=== PATIENT | female | born 1955 | race Caucasian/White ===

== ENCOUNTER → 2019-11-18 14:05 | Outpatient (BNVA) | payer MEDICARE, OTHER, SELFPAY | PROVIDERS: Family Provider Nurse Practitioner; Visit Provider Nurse Practitioner Family | DX: R53.83 Other fatigue (principal); E03.9 Hypothyroidism, unspecified; E78.2 Mixed hyperlipidemia; Z79.899 Other long term (current) drug therapy; E55.9 Vitamin D deficiency, unspecified | CPT/HCPCS: 80053; 80061; 81001; 82306; 83036; 84443; 85025 ==

== ENCOUNTER → 2019-11-23 09:46 | Outpatient (BNVA) | payer MEDICARE, OTHER, SELFPAY | PROVIDERS: Family Provider Nurse Practitioner; Visit Provider Nurse Practitioner Family | DX: R31.9 Hematuria, unspecified (principal) | CPT/HCPCS: 81001 ==

== ENCOUNTER → 2020-05-01 09:36 | Outpatient (BNVA) | payer MEDICARE, OTHER, SELFPAY | PROVIDERS: Family Provider Nurse Practitioner; Visit Provider Nurse Practitioner Family | DX: E03.9 Hypothyroidism, unspecified (principal); R31.9 Hematuria, unspecified; Z79.899 Other long term (current) drug therapy; Z12.31 Encounter for screening mammogram for malignant neoplasm of breast | CPT/HCPCS: 80053; 81003; 83036; 84443; 85025; 88112 ==

== ENCOUNTER 2020-05-23 10:21 | Outpatient (CLI) | payer MEDICARE, OTHER, SELFPAY ==
--- NOTE | 2020-05-23 11:00 | MM_ITS ---
WS: [id number] Bilateral screening digital mammogram, 05/23/2020 Clinical Data: breast cancer screening Comparison: 04/08/2019, 04/07/2018, 02/27/2017, 02/21/2016, 01/27/2015, 01/26/2014, 01/01/2013, 12/02/2011, , 11/15/2009, 11/18/2008, 11/10/2007, 10/17/2006. Findings: The breast parenchymal pattern shows fat replacement. No spiculated masses or clustered calcification s are seen. There are no secondary signs of carcinoma. MM/[place] [id number] Impression: 1. Negative bilateral mammogram unchanged. 2. Recommend annual screening mammograms. BIRADS: 1-Negative FOLLOW UP: 1 Year Follow-up The CAD box car checker was used.
== END 2020-05-23 10:22 | disposition home or self-care (01) ==
LOC: RADSHAW 10:27
PROVIDERS: PCP Nurse Practitioner Family; Visit Provider Nurse Practitioner Family
DX: Z12.31 Encounter for screening mammogram for malignant neoplasm of breast (principal)
CPT/HCPCS: 77067

== ENCOUNTER → 2020-11-03 10:58 | Outpatient (BNVA) | payer MEDICARE, OTHER, SELFPAY | PROVIDERS: PCP Nurse Practitioner Family; Visit Provider Nurse Practitioner Family | DX: E03.9 Hypothyroidism, unspecified (principal); I10 Essential (primary) hypertension; J30.89 Other allergic rhinitis; E55.9 Vitamin D deficiency, unspecified; Z13.6 Encounter for screening for cardiovascular disorders; Z79.899 Other long term (current) drug therapy | CPT/HCPCS: 80061; 83036; 84443 ==

== ENCOUNTER → 2021-02-05 10:19 | Outpatient (BNVA) | payer MEDICARE, OTHER, SELFPAY | PROVIDERS: PCP Nurse Practitioner Family; Visit Provider Nurse Practitioner Family | DX: J06.9 Acute upper respiratory infection, unspecified (principal); Z20.822 Contact with and (suspected) exposure to COVID-19 | CPT/HCPCS: 87635 ==

== ENCOUNTER → 2021-05-09 09:38 | Outpatient (BNVA) | payer MEDICARE, OTHER, SELFPAY | PROVIDERS: PCP Nurse Practitioner Family; Visit Provider Nurse Practitioner Family | DX: E55.9 Vitamin D deficiency, unspecified (principal); I10 Essential (primary) hypertension; E03.9 Hypothyroidism, unspecified; Z13.6 Encounter for screening for cardiovascular disorders; Z79.899 Other long term (current) drug therapy | CPT/HCPCS: 80053; 80061; 81003; 82306; 83036; 84443; 85025 ==

== ENCOUNTER 2021-07-23 09:02 | Outpatient (CLI) | payer MEDICARE, OTHER, SELFPAY ==
--- NOTE | 2021-07-23 10:00 | MM_ITS ---
WS: [id number] BILATERAL SCREENING DIGITAL MAMMOGRAM WITH CAD HISTORY: Z12.31 - Encounter for screening mammogram for malignancy. COMPARISON: 05/23/2020, 04/08/2019 Bilateral CC and MLO views submitted. Computer aided detection analyzed. Breast composition: There are scattered areas of fibroglandular density. No suspicious masses, microc alcifications or architectural distortion. Benign arterial calcifications and a few scattered benign round calcifications. MM/[place] [id number] IMPRESSION: BI-RADS: 2-Benign FOLLOW UP: 1 Year Follow-up
== END 2021-07-23 09:03 | disposition home or self-care (01) ==
LOC: RADSHAW 09:08
PROVIDERS: PCP Nurse Practitioner Family; Visit Provider Nurse Practitioner Family
DX: Z12.31 Encounter for screening mammogram for malignant neoplasm of breast (principal)
CPT/HCPCS: 77067

== ENCOUNTER → 2022-04-29 08:42 | Outpatient (BNVA) | payer MEDICARE, OTHER, SELFPAY | PROVIDERS: Visit Provider Nurse Practitioner | DX: E07.9 Disorder of thyroid, unspecified (principal) | CPT/HCPCS: 84443 ==

== ENCOUNTER 2022-07-31 09:54 | Outpatient (CLI) | payer MEDICARE, OTHER, SELFPAY ==
--- NOTE | 2022-07-31 10:06 | MM_ITS ---
WS: [id number] BILATERAL SCREENING DIGITAL TOMOSYNTHESIS MAMMOGRAM WITH CAD HISTORY: SCREENING COMPARISON: 07/23/2021 and 05/23/2020 Bilateral CC and MLO views with tomosynthesis and synthetic mammography submitted. Computer aided det ection analyzed. Breast composition: There are scattered areas of fibroglandular density. No suspicious masses, microc alcifications or architectural distortion. Bilateral breast arterial calcifications. MM/[place] [id number] IMPRESSION: BI-RADS: 2-Benign FOLLOW UP: 1 Year Follow-up
== END 2022-07-31 09:55 | disposition home or self-care (01) ==
LOC: RAD 09:57
PROVIDERS: Visit Provider Nurse Practitioner
DX: Z12.31 Encounter for screening mammogram for malignant neoplasm of breast (principal)
CPT/HCPCS: 77063; 77067

== ENCOUNTER 2022-09-14 10:23 | Emergency (ER) | payer MEDICARE, OTHER, SELFPAY ==
[2022-09-14 10:26] VITALS: BP 132/87; PULSE 87; RESP 16; TEMP 36.7; O2SAT 98
--- NOTE | 2022-09-14 10:44 | W.ED.DENTAL ---
HPI - Dental/Oral General: Chief complaint: Dental/Oral Stated complaint: tooth ache Time Seen by Provider: 09/14/22 10:32 History of Present Illness: Ms. Bonilla is a 67-year-old lady presenting to the emergency department for evaluation of dental infection. She reports onset of symptoms 3 days ago with left-sided lower jaw aching and pain. Symptoms have progressed and now involves pain with palpation and some swelling on the left side of the neck. Limited range of motion of the jaw secondary to pain. Improved with Tylenol. Intensity symptoms is moderate. She was seen at urgent care and sent here for evaluation of deep space infection Onset (ago): day(s) Duration: worsening Severity: moderate Relieving factors: other Exacerbating factors: chewing and swallowing Context: history of dental caries and poor dental care Associated symptoms: Reports fever(s) and odynophagia Review of Systems General: Reports: 10 or more systems reviewed and unremarkable except in HPI and below Const: Reports: fever(s) ENMT: Reports: odynophagia PFSH ED PFSH: Medical History Acquired hypothyroidism Breast cancer screening by mammogram Encounter for medication management Environmental and seasonal allergies Essential hypertension Hematuria Hypertension screen Vitamin D deficiency Surgical History H/O colonoscopy Normal colonoscopy 2017, repeat in 5 yeart (2022) H/O colonoscopy with polypectomy Status post cervical spinal fusion Family History Other Arthritis Cancer Stroke Social History Smoking and tobacco status: never smoked Alcohol intake: never Physical Exam Const: COMMON NORMALS: alert GENERAL APPEARANCE: cooperative and well developed HENMT: COMMON NORMALS: normocephalic and atraumatic HEAD & SCALP: normocephalic and atraumatic THROAT: posterior oropharynx normal OTHER: Limited evaluation secondary to moderate trismus, overall poor dentition with multiple dental caries and missing teeth, no discrete abscess in the left molar mandibular region. There is external tenderness to palpation and tenderness with mild induration down the lateral neck. Uvula appears midline. Eye: COMMON NORMALS: conjunctivae normal CONJUNCTIVA: Yes conjunctivae normal SCLERA: sclerae normal Neck/C-Spine: COMMON NORMALS: supple GENERAL: Yes trachea midline Resp: COMMON NORMALS: clear to auscultation bilaterally EFFORT & INSPECTION: Yes able to speak in complete sentences AUSCULTATION: clear to auscultation bilaterally Cardio: COMMON NORMALS: regular rate and regular rhythm RATE: regular rate RHYTHM: regular rhythm GI: COMMON NORMALS: Soft to palpation PALPATION: Yes Soft to palpation and No Tenderness to palpation present (GI) Extremity: GENERAL: Yes normal exam except as noted and No edema Neuro: COMMON NORMALS: moves all extremities SENSORIUM/ORIENTATION: Yes alert and No Orientation impaired Psych: COMMON NORMALS: mental status grossly normal and Normal thought process present THOUGHT PROCESS: Normal thought process present Course Vital Signs: Vital signs: Vital Signs Temperature 98.0 F 09/14/22 10:26 Pulse Rate 73 09/14/22 13:36 Respiratory Rate 16 09/14/22 10:26 Blood Pressure 160/99 09/14/22 13:36 Pulse Oximetry 98 09/14/22 13:36 Oxygen Delivery Me thod 09/14/22 10:26 [facility] [place] - Dental/Oral Medical Decision Making 67-year-old lady presenting with concern over dental infection with trismus and concern for evaluation of deep tissue infection from urgent care. Exam as above. Patient is nontoxic. Labs notable for leukocytosis and hemoconcentration compared prior which is similar. Metabolic panel without acute derangement. Imaging notable for likely submandibular gland sialadenitis. Incidental findings including need for follow-up and repeat imaging to evaluate for other causes of masslike density. Additionally need for dental/OMFS follow-up for osteomyelitis and poor dentition discussed with the patient. Patient improved on reassessment. She will be treated in the outpatient setting with analgesia and antibiotics. Strict return precautions discussed. The results of ED evaluation were discussed with the patient including prescriptions and/or symptomatic cares (if applicable) including appropriate and responsible use, followup plan, and return precautions. The patient verbalized understanding and felt safe for discharge. Medical Records I reviewed the patient's medical records. Lab Data I reviewed the patient's lab results. 09/14/22 10:55 09/14/22 10:[address] 09/14/22 10:51 IMPRESSION: 1. Findings as stated above are consistent with osteomyelitis involving the root of the posterior-most left mandibular molar with adjacent soft tissue infection. 2. There is heterogeneous soft tissue density along the left side of the tongue which cannot be differentiated from the adjacent left submandibular gland. Multiple small low-density peripherally enhancing foci in this soft tissue collection raise concern for small developing abscess formations. The soft tissue density may represent enlarged lymph nodes. Follow-up to exclude neoplasm upon resolution of the patient's symptoms. Neck CT 09/14/22 10:51 IMPRESSION: 1. Findings as stated above are consistent with left submandibular gland sialadenitis. Adjacent heterogeneous soft tissue density may represent enlarged lymph nodes. Follow-up to exclude neoplasm upon resolution of the patient's symptoms. 2. There is lucency surrounding the root of the posterior-most left mandibular molar extending to the cortical surfaces with adjacent hazy stranding consistent with infection/osteomyelitis. Dental consult recommended. ADDENDUM: 09/14/22 1304 CRITICAL RESULT: The study was personally discussed on the telephone with Brad Awad on 09/14/2022 1:03 PM CONSTRUCTION RECRUITER. The results were understood and acknowledged. Laboratory Results WBC 12.3 10^3/uL (4.0-10.0) H 09/14/22 10:55 RBC 5.43 10^6/uL (4.1-5.3) H 09/14/22 10:55 Hgb 16.2 g/dL (11.5-15.3) H 09/14/22 10:55 Hct 50.2 % (37.0-47.0) H 09/14/22 10:55 MCV 92.4 fl (81-99) 09/14/22 10:55 MCH 29.8 pg (28.0-34.0) 09/14/22 10:55 MCHC 32.3 g/dL (30.0-36.0) 09/14/22 10:55 RDW 14.0 % (12.1-15.1) 09/14/22 10:55 Plt Count 229 10^3/cmm (130-400) 09/14/22 10:55 MPV 10.8 fL (7.4-10.4) H 09/14/22 10:55 Neut % (Auto) 70.2 % 09/14/22 10:55 Lymph % (Auto) 21.2 % 09/14/22 10:55 Thomas % (Auto) 7.3 % 09/14/22 10:55 Eos % (Auto) 0.5 % 09/14/22 10:55 Baso % (Auto) 0.5 % 09/14/22 10:55 Neut # (Auto) 8.66 10^3/uL (1.8-7.7) H 09/14/22 10:55 Lymph # (Auto) 2.6 10^3/uL (0.8-4.8) 09/14/22 10:55 Thomas # (Auto) 0.9 10^3/uL (0.2-0.9) 09/14/22 10:55 Eos # (Auto) 0.1 10^3/uL (0.0-0.8) 09/14/22 10:55 Baso # (Auto) 0.1 10^3/uL (0.0-0.1) 09/14/22 10:55 Nucleated RBC % (auto) 0 % 09/14/22 10:55 Nucleated RBCs # 0.0 /100WBC 09/14/22 10:55 Sodium 136 mmol/L (136-145) 09/14/22 10:55 Potassium 4.0 mmol/L (3.5-5.1) 09/14/22 10:55 Chloride 101 mmol/L (98-107) 09/14/22 10:55 Carbon Dioxide 25 mmol/L (22-29) 09/14/22 10:55 Anion Gap 14.0 (5-19) 09/14/22 10:55 BUN 12 mg/dL (8-23) 09/14/22 10:55 Creatinine 0.8 mg/dL (0.5-0.9) 09/14/22 10:55 GFR Calculation 71.1 mL/min (90-130) L 09/14/22 10:55 Glucose 101 mg/dL (65-115) 09/14/22 10:55 Calculated Osmolality 282 mOsm/kg (285-295) L 09/14/22 10:55 Lactate 1.1 mmol/L (0.5-2.2) 09/14/22 10:55 Calcium 9.7 mg/dL (8.5-10.5) 09/14/22 10:55 Total Bilirubin 0.4 mg/dL (0.15-1.2) 09/14/22 10:55 AST 14 U/L (0-32) 09/14/22 10:55 ALT 12 U/L (0-33) 09/14/22 10:55 Alkaline Phosphatase 80 U/L (35-105) 09/14/22 10:55 Total Protein 8.1 g/dL (6.6-8.7) 09/14/22 10:55 Albumin 4.1 g/dL (3.5-5.2) 09/14/22 10:55 Globulin 4.0 g/dL (1.3-4.6) 09/14/22 10:55 Group A Strep Rapid Negative (Negative) 09/14/22 12:14 Discharge Plan Discharge Patient Disposition: Home Clinical Impression: Infected dental caries, Sialadenitis Condition: Stable Prescriptions: New amoxicillin-pot clavulanate 875-125 mg tablet 1 tab PO BID Qty: 20 0RF oxycodone 5 mg tablet 5 mg PO Q4H PRN (Reason: pain) Qty: 10 0RF No Action Tylenol Extra Strength 500 mg Capsule 1,000 mg PO Q6H PRN (Reason: Pain) Zyrtec 10 mg Capsule 10 mg PO DAILY PRN (Reason: Allergy Symptoms) Euthyrox 100 mcg tablet 100 mcg PO DAILY Discharge Orders: Discharge ED (Routine); Ordered 09/14/22 Ordered By: Brad Elliott Referrals: Melida Metzger FNP [Primary Care Provider] - Discharge Diet: Usual diet Discharge Activity: Increase activity as tolerated Patient Instructions: Dental Caries (Cavities), Sialoadenitis (ED), Opioid Safety Activity Restrictions/Additional Instructions: Thank you for visiting the emergency department. You were seen and evaluated for facial pain and swelling. The most likely cause of your symptoms is dental infection with osteomyelitis as well as sialoadenitis. I will prescribe oxycodone, use this cautiously as it is an opioid. You may use [id number] medications such as acetaminophen and ibuprofen for pain however please do not exceed the daily recommended dosage as listed on the packaging and please keep in mind that many namebrand medications contain the same active ingredients. Please avoid these medications if previously instructed to do so by another physician due to other underlying medical condition. I will also prescribe antibiotics. As discussed given the degree of inflammation and abnormal appearance on CT imaging they recommend repeat imaging to ensure normal appearance and complete resolution of findings to ensure that they do not represent underlying mass lesion or tumor. Please follow-up with a dentist. Also follow-up with OMFS. Return to the emergency department for uncontrolled symptoms or anything else that you are concerned about and feel needs emergency department evaluation. Coding Level of Care Code ED Human Resources Executive Assistant for Amadou Pham
--- NOTE | 2022-09-14 10:51 | CTR_ITS ---
PROCEDURE INFORMATION: Exam: CT Maxillofacial With Contrast Exam date and time: 09/14/2022 11:31 AM Age: 67 years old Clinical indication: Face pain; Additional info: Trismus, L face pain, eval deep infection TECHNIQUE: Imaging protocol: Computed tomography of the face with contrast. Radiation optimization: All CT scans at this facility use at least one of these dose optimization techniques: automated exposure control; mA and/or kV adjustment per patient size (includes targeted exams where dose is matched to clinical indication); or iterative reconstruction. Contrast material: OMNI 350; Contrast volume: 50 ml; Contrast route: INTRAVENOUS (IV); REPORTING DATA: Count of CT and Cardiac NM exams in prior 12 months: This patient has received [address] and 0 known cardiac nuclear medicine studies in the 12 months prior to the current study. COMPARISON: No relevant prior studies available. RADIATION DOSE METRICS: Total DLP (mGy-cm): 482.2 FINDINGS: Orbital cavities: Orbits are normal. Globes are unremarkable. Bones/joints: No acute fracture. Paranasal sinuses: Normal. No air-fluid levels. Salivary glands: Left submandibular gland is enlarged and heterogeneously enhances. There is stranding in the adjacent fat planes. Soft tissues: There is somewhat ill-defined heterogeneously enhancing soft tissue density along the left side of the tongue which cannot be differentiated from the adjacent enlarged left submandibular gland. This measures 2.9 x 2.9 cm in AP/craniocaudad dimensions and contains multiple peripherally enhancing small low-density collections. Dental: There is lucency surrounding the root of the posterior most left mandibular molar extending to the cortical surfaces with adjacent soft tissue stranding consistent osteomyelitis with adjacent soft tissue infection. CT/CT facial bones w con [id number] IMPRESSION: 1. Findings as stated above are consistent with osteomyelitis involving the root of the posterior-most left mandibular molar with adjacent soft tissue infection. 2. There is heterogeneous soft tissue density along the left side of the tongue which cannot be differentiated from the adjacent left submandibular gland. Multiple small low-density peripherally enhancing foci in this soft tissue collection raise concern for small developing abscess formations. The soft tissue density may represent enlarged lymph nodes. Follow-up to exclude neoplasm upon resolution of the patient's symptoms.
--- NOTE | 2022-09-14 10:51 | CTR_ITS ---
PROCEDURE INFORMATION: Exam: CT Neck With Contrast Exam date and time: 09/14/2022 11:31 AM Age: 67 years old Clinical indication: Neck pain and other: Left face/neck; Additional info: Trismus, L face pain, eval deep infection TECHNIQUE: Imaging protocol: Computed tomography of the neck with contrast. Radiation optimization: All CT scans at this facility use at least one of these dose optimization techniques: automated exposure control; mA and/or kV adjustment per patient size (includes targeted exams where dose is matched to clinical indication); or iterative reconstruction. Contrast material: OMNI 350; Contrast volume: 50 ml; Contrast route: INTRAVENOUS (IV); REPORTING DATA: Count of CT and Cardiac NM exams in prior 12 months: This patient has received [address] and 0 known cardiac nuclear medicine studies in the 12 months prior to the current study. COMPARISON: No relevant prior studies available. RADIATION DOSE METRICS: Total DLP (mGy-cm): 217.5 FINDINGS: Dental: Lucency surrounds the root of the posterior most left mandibular molar tooth measuring up to 3.2 mm. The lucency extends to the cortical surfaces at the anterior and posterior aspects of the mandible associated with hazy stranding along the posterior surface of the mandible. Pharynx: Unremarkable. No significant tonsillar enlargement. Larynx: Unremarkable. Epiglottis is normal. Prevertebral and retropharyngeal spaces: Unremarkable. Salivary glands: Left submandibular gland is mildly enlarged in relation to the right and heterogeneously enhancing. There is mild hazy stranding in the fat surrounding the left submandibular gland. Thyroid: Thyroid gland is heterogeneous. There are some ill-defined low-density lesions in the thyroid the larger of which measures 11 mm in the left thyroid lobe. Lymph nodes: There is ill-defined heterogeneous soft tissue along the left side of the tongue density measuring 2.6 x 2.6 cm in the craniocaudad/AP dimensions which cannot be differentiated from the superior surface of the adjacent left submandibular gland. These densities likely represent enlarged lymph nodes. Trachea: Visualized trachea is unremarkable. Lungs: There are emphysematous changes at the lung apices. Bones/joints: There are degenerative and postoperative changes in the cervical spine. Soft tissues: See above. CT/CT neck w con* [id number] IMPRESSION: 1. Findings as stated above are consistent with left submandibular gland sialadenitis. Adjacent heterogeneous soft tissue density may represent enlarged lymph nodes. Follow-up to exclude neoplasm upon resolution of the patient's symptoms. 2. There is lucency surrounding the root of the posterior-most left mandibular molar extending to the cortical surfaces with adjacent hazy stranding consistent with infection/osteomyelitis. Dental consult recommended.
[2022-09-14 11:10] LABS: Basophils # 0.1 10^3/uL (0.0-0.1); Basophils % 0.5 %; Eosinophils # 0.1 10^3/uL (0.0-0.8); Eosinophils % 0.5 %; Hematocrit 50.2 % (37.0-47.0); Hemoglobin 16.2 g/dL (11.5-15.3); Lymphocytes # 2.6 10^3/uL (0.8-4.8); Lymphocytes % 21.2 %; Mean Corpuscular HGB Conc 32.3 g/dL (30.0-36.0); Mean Corpuscular Hemoglobin 29.8 pg (28.0-34.0); Mean Corpuscular Volume 92.4 fl (81-99); Mean Platelet Volume 10.8 fL (7.4-10.4); Monocytes # 0.9 10^3/uL (0.2-0.9); Monocytes % 7.3 %; Neutrophils # 8.66 10^3/uL (1.8-7.7); Neutrophils % 70.2 %; Nucleated Red Blood Cells % 0 %; Platelet Count 229 10^3/cmm (130-400); Red Blood Count 5.43 10^6/uL (4.1-5.3); White Blood Count 12.3 10^3/uL (4.0-10.0)
[2022-09-14 11:23] LABS: Alanine Aminotransferase 12 U/L (0-33); Albumin Level 4.1 g/dL (3.5-5.2); Alkaline Phosphatase 80 U/L (35-105); Aspartate Amino Transferase 14 U/L (0-32); Blood Urea Nitrogen 12 mg/dL (8-23); Calcium 9.7 mg/dL (8.5-10.5); Carbon Dioxide 25 mmol/L (22-29); Chloride 101 mmol/L (98-107); Glomerular Filtration Rate 71.1 mL/min (90-130); Glucose 101 mg/dL (65-115); Lactate (Lactic Acid level) 1.1 mmol/L (0.5-2.2); Osmolality Calculated 282 mOsm/kg (285-295); Sodium 136 mmol/L (136-145); Total Bilirubin 0.4 mg/dL (0.15-1.2); Total Protein 8.1 g/dL (6.6-8.7)
[2022-09-14] MEDS: iohexol 350 mg/mL 500 mL Btl (per mL) IV ×2 (11:45→11:46)
[2022-09-14 13:14] LABS: Rapid Strep A Test Negative (Negative)
[2022-09-14 13:36] VITALS: BP 160/99; PULSE 73; O2SAT 98
== END 2022-09-14 13:37 | disposition home or self-care (01) ==
PROVIDERS: Emergency Provider Emergency Medicine; PCP Nurse Practitioner
DX: K11.20 Sialoadenitis, unspecified (principal); K02.9 Dental caries, unspecified
CPT/HCPCS: 70487; 70491; 80053; 83605; 85025; 87081; 87880; 99285; Q9967

== ENCOUNTER → 2022-10-02 09:34 | Outpatient (BNVA) | payer MEDICARE, OTHER, SELFPAY | PROVIDERS: PCP Nurse Practitioner; Visit Provider Nurse Practitioner | DX: I10 Essential (primary) hypertension (principal); E03.9 Hypothyroidism, unspecified; Z79.899 Other long term (current) drug therapy | CPT/HCPCS: 80053; 80061; 82306; 84443; 85025 ==

== ENCOUNTER → 2022-10-03 10:37 | Outpatient (BNVA) | payer MEDICARE, OTHER, SELFPAY | PROVIDERS: PCP Nurse Practitioner; Visit Provider Nurse Practitioner | DX: E87.5 Hyperkalemia (principal) | CPT/HCPCS: 84132 ==

== ENCOUNTER 2022-11-27 12:41 | Outpatient (CLI) | payer MEDICARE, OTHER, SELFPAY ==
--- NOTE | 2022-11-27 13:00 | CT_ITS ---
WS: [id number] CT NECK WITH CONTRAST HISTORY: R59.9 - Enlarged lymph nodes, unspecified TECHNIQUE: Contiguous 5 mm axial images are performed through the neck with intravenous contrast. Sag ittal and coronal reformats are also submitted. All CT scans at [facility] use at least one o f these dose optimization techniques: automated exposure control; mA and/or kV adjustment per patient size (includes targeted exams where dose is matched to clinical indication); or iterative reconstruc tion. CONTRAST: CONTRAST: Omnipaque 350; 100 mL IV. DLP: 123.98 mGy.cm COMPARISON: 09/14/2022 Nasopharynx, oropharynx, hypopharynx and larynx are unremarkable. No soft tissue masses or abnormal e nhancement. Torus tubarius and fossa of Rosenmuller and parapharyngeal fat are normal. Bilateral cervical chain lymph nodes are reidentified. Decrease in size and hyperemia of the LEFT cer vical chain lymph nodes. There is also less septations fat stranding. The largest lymph node measures 9 mm at level IIa. Normal enhancement of the thyroid gland. Submandibular and parotid glands are normally enhancing. No masses are identified within the glands. No parotid or submandibular duct stones. Prior anterior cervical fusion C5-C7. Visualized portions of the skull base demonstrate no abnormalities. Orbits and globes are within norm al limits. No soft tissue masses. Posterior LEFT molar has been removed. No persistent abscess at the tooth extraction site. Visualized paranasal sinuses and mastoid air cells are normal. Lung apices are clear. CT/CT neck w con* [id number] IMPRESSION: 1. Bilateral cervical chain lymph nodes have returned to normal. These are pro bably reactive from the dental abscess. 2. No submandibular gland or parotid gland mass. 3. Interval extraction of the posterior LEFT mandibular molar. No recurrent ab scess at the extraction site.
[2022-11-27 13:21] LABS: Blood Urea Nitrogen 17 mg/dL (8-23)
[2022-11-27] MEDS: iohexol 350 mg/mL 500 mL Btl (per mL) IV (13:30)
== END 2022-11-27 12:42 | disposition home or self-care (01) ==
PROVIDERS: PCP Nurse Practitioner; Visit Provider Nurse Practitioner
DX: R59.9 Enlarged lymph nodes, unspecified (principal); Z01.89 Encounter for other specified special examinations
CPT/HCPCS: 70491; 82565; 84520; Q9967

== ENCOUNTER → 2024-01-08 08:32 | Outpatient (BNVA) | payer MEDICARE, OTHER, SELFPAY | PROVIDERS: PCP Nurse Practitioner; Visit Provider Nurse Practitioner Family | DX: Z79.899 Other long term (current) drug therapy (principal); I10 Essential (primary) hypertension; E03.9 Hypothyroidism, unspecified; E55.9 Vitamin D deficiency, unspecified; Z13.6 Encounter for screening for cardiovascular disorders; Z98.890 Other specified postprocedural states; Z12.31 Encounter for screening mammogram for malignant neoplasm of breast; N90.89 Other specified noninflammatory disorders of vulva and perineum | CPT/HCPCS: 80053; 80061; 81003; 82306; 83036; 84443; 85025 ==

== ENCOUNTER 2024-01-14 09:54 | Outpatient (CLI) | payer MEDICARE, OTHER, SELFPAY ==
--- NOTE | 2024-01-14 10:00 | MM_ITS ---
WS: [id number] BILATERAL 3D TOMOSYNTHESIS DIGITAL SCREENING MAMMOGRAPHY WITH CAD CLINICAL INFORMATION: Z12.31 - Encounter for screening mammogram for malignant ... HISTORY: Screening mammogram. No current complaints. COMPARISON: 2022 TECHNIQUE: Bilateral CC and MLO views. FINDINGS: Scattered fibroglandular densities bilaterally. No suspicious focal mass, asymmetry, calcifications, or architectural distortion. No evidence of malignancy. Incidental punctate calcifications. Vascular calcification. MM/[place] [id number] IMPRESSION: BI-RADS: 2-Benign FOLLOW UP: 1 Year Follow-up Recommend return to annual screening mammography.
== END 2024-01-14 09:55 | disposition home or self-care (01) ==
LOC: MOBLMAM 10:03
PROVIDERS: PCP Nurse Practitioner Family; Visit Provider Nurse Practitioner Family
DX: Z12.31 Encounter for screening mammogram for malignant neoplasm of breast (principal); Z98.890 Other specified postprocedural states; R92.323 Mammographic fibroglandular density, bilateral breasts; R92.1 Mammographic calcification found on diagnostic imaging of breast
CPT/HCPCS: 77063; 77067

== ENCOUNTER → 2024-02-16 08:33 | Outpatient (BNVA) | payer MEDICARE, OTHER, SELFPAY | PROVIDERS: PCP Nurse Practitioner Family; Visit Provider Nurse Practitioner Family | DX: L57.0 Actinic keratosis (principal); L72.0 Epidermal cyst; L70.8 Other acne; L81.4 Other melanin hyperpigmentation; L82.1 Other seborrheic keratosis; L85.3 Xerosis cutis | CPT/HCPCS: 17000; 99203 ==

== ENCOUNTER → 2024-03-10 08:11 | Outpatient (BNVA) | payer MEDICARE, OTHER, SELFPAY | PROVIDERS: PCP Nurse Practitioner Family; Visit Provider Dermatology | DX: D48.5 Neoplasm of uncertain behavior of skin (principal) | CPT/HCPCS: 11422; 13132; 56605 ==

== ENCOUNTER → 2025-02-16 07:44 | Outpatient (BNVA) | payer MEDICARE, SELFPAY | PROVIDERS: PCP Nurse Practitioner Family; Visit Provider Nurse Practitioner Family | DX: L81.4 Other melanin hyperpigmentation (principal); L85.3 Xerosis cutis; L82.1 Other seborrheic keratosis | CPT/HCPCS: 99213 ==

== ENCOUNTER 2025-03-01 09:14 | Outpatient (CLI) | payer MEDICARE, OTHER, SELFPAY ==
--- NOTE | 2025-03-01 09:20 | MM_ITS ---
WS: [id number] BILATERAL 3D TOMOSYNTHESIS DIGITAL SCREENING MAMMOGRAPHY WITH CAD CLINICAL INFORMATION: SCREENING HISTORY: Screening mammogram. No current complaints. COMPARISON: 2023 TECHNIQUE: Bilateral CC and MLO views. FINDINGS: Scattered fibroglandular densities bilaterally. No suspicious focal mass, asymmetry, calcifications, or architectural distortion. No evidence of malignancy. Vascular calcification. MM/MM scr tomosynthesis [id number] IMPRESSION: DENSITY: There are scattered areas of fibroglandular density. BI-RADS: 2 - Benign. FOLLOW UP: 1 Year Follow-up Recommend return to annual screening mammography.
== END 2025-03-01 09:15 | disposition home or self-care (01) ==
LOC: MOBLMAM 09:18
PROVIDERS: PCP Nurse Practitioner Family; Visit Provider Nurse Practitioner Family
DX: Z12.31 Encounter for screening mammogram for malignant neoplasm of breast (principal); R92.323 Mammographic fibroglandular density, bilateral breasts; R92.1 Mammographic calcification found on diagnostic imaging of breast
CPT/HCPCS: 77063; 77067

== ENCOUNTER → 2025-03-21 10:22 | Outpatient (BNVA) | payer MEDICARE, OTHER, SELFPAY | PROVIDERS: PCP Nurse Practitioner Family; Visit Provider Nurse Practitioner Family | DX: E55.9 Vitamin D deficiency, unspecified (principal); Z79.899 Other long term (current) drug therapy; I10 Essential (primary) hypertension; R31.9 Hematuria, unspecified; E03.9 Hypothyroidism, unspecified | CPT/HCPCS: 80053; 80061; 81003; 82306; 83036; 84443; 85025; 88112 ==